=== PATIENT | male | born 1965 | race Caucasian/White ===

== ENCOUNTER 2016-08-25 19:13 | Emergency (ER) | payer BC ==
--- NOTE | 2016-08-25 20:30 | DIAGNOSTIC IMAGING REPORT ---
PROCEDURE: XR CHEST 1 VIEW INDICATION: SYNCOPE TECHNIQUE: Portable AP view 201 5 hours. COMPARISON: None. FINDINGS: Minor scarring at the right medial lung base. Lungs are otherwise clear. Heart and mediastinum are normal. Thorax is normal. IMPRESSION: 1. Negative chest.
--- NOTE | 2016-08-25 21:12 | DIAGNOSTIC IMAGING REPORT ---
PROCEDURE: CT HEAD WITHOUT CONTRAST INDICATION: SYNCOPE TECHNIQUE: Noncontrast axial images with sagittal and coronal reformations. COMPARISON: None. FINDINGS: Brain and ventricles are normal. No evidence of an acute process or hemorrhage. There is a 2 cm chronic retention of the right maxillary sinus with mild to moderate mucosal thickening in the ethmoid air cells. The rest of the sinuses and mastoids are normal. IMPRESSION: 1. Negative head CT. 2. There is mild to moderate mucosal thickening in the ethmoid air cells (most likely chronic). 3. There is a 2 cm chronic retention cyst in right maxillary sinus. 4. Report alert and findings called to emergency department for Dr. Nathan Davey at [address] scans at this facility use dose modulation, iterative reconstruction, and/or weight-based dosing when appropriate to reduce radiation dose to as low as reasonably achievable.
--- NOTE | 2016-08-25 22:22 | ED ORDER SUMMARY ---
..... Patient: PEG GABRIEL OrderSheet [facility] VisitID: [id number] [place] [address] 51y, M Registration Date/Time: 08/25/2016 ORDER SHEET Weight: 83.9 kg (stated) Allergies: Sulfa Antibiotics GENERAL ORDERS: Poultry Husbandman (Continuous) (20:08/25/2016 HSoule per protocol) (20:07 HSoule) CBC w Diff Urgent (20:08/25/2016 HSoule per protocol) (Ack 20:12 LTapper) (20:23 HSoule) CMP Urgent (20:08/25/2016 HSoule per protocol) (Ack 20:12 LTapper) (20:29 SRoberts R.N.) EKG - ER Stat (20:08/25/2016 HSoule per protocol) (20:07 HSoule) POC Glucose (20:08/25/2016 HSoule per protocol) (20:15 HSoule) Poultry Husbandman (Continuous) (20:08/25/2016 Saud CREWS) (20:19 HSoule) Chest 1V Urgent (20:08/25/2016 Saud CREWS) (Ack 20:23 HSoule) (20:29 Godfrey) Amylase Urgent (20:08/25/2016 Saud CREWS) (Ack 20:26 LTapper) (20:29 SRoberts R.N.) Lipase Urgent (20:08/25/2016 Saud CREWS) (Ack 20:26 LTapper) (20:29 SRoberts R.N.) CPK Urgent (20:08/25/2016 Saud CREWS) (Ack 20:26 LTapper) (20:29 SRoberts R.N.) Troponin-I Urgent (20:08/25/2016 Saud CREWS) (Ack 20:26 LTapper) (20:29 SRoberts R.N.) Vitals - Orthostatic (20:08/25/2016 Saud CREWS) (20:32 HSoule) Ethyl Alcohol Urgent (20:35 08/25/2016 Saud CREWS) (Ack 20:40 LTapper) (20:51 Yoly Sahu) CT Head wo Cont Urgent (20:42 08/25/2016 Saud CREWS) (Ack 20:45 LTapper) (20:51 Yoly Sahu) MEDICATION ORDERS: IV FLUIDS: IV Saline Lock (20:07 08/25/2016 HSoule per protocol) (20:07 HSoule) IV NS : initial bolus 1000 mL (1000 mL/hr), then none - for X2 (NOW); Urgent (20:38 08/25/2016 Saud CREWS) (20:50 Yoly Sahu) ORDER SHEET NOTES: [Electronically signed by Susie Hernandes R.N. (22:32 08/25/2016)] [Electronically signed by Christian Vaca Dr. (03:35 08/26/2016)] [Electronically locked/signed by Susie Hernandes R.N. (22:32 08/25/2016)]
--- NOTE | 2016-08-25 22:22 | ED NURSING NOTES ---
Clinical Report - Nurses [facility] [address] [place] [address] 08/25/2016 19:14 Patient: PEG GABRIEL TRIAGE Triage time 19:21. Acuity: LEVEL 3. Chief Complaint: SYNCOPE. Alert. No acute distress. JEREMIE COMA SCORE: Mabel Coma Scale: 15- eyes open spontaneously (4); best verbal response- oriented x 4 (5); best motor response- obeys commands (6). --19:28 Afshan Lim R.N. 19:21 08/25/16. BP: 106/66. HR: 88. RR: 12. O2 saturation: 98%. Temp: 98.3 F (oral). Pain level now: 0/10. --19:28 Afshan Lim R.N. Weight: 83.9 kg stated. Height/Length: 73 inches Per Patient. BMI: 24.4. --19:25 Afshan Lim R.N. Medications Antacid Oral. --19:22 Afshan Lim R.N. Medication/allergy information source: the patient. --19:28 Afshan Lim R.N. Allergies Sulfa Antibiotics. --19:22 Afshan Lim R.N. History Arrived by private vehicle. Historian: patient. Accompanied by friend. Primary physician (Nayeli). This started just prior to arrival. ( was at restaurant and friends noted that he "passed out", his wyws rolled back, Medics evaled him and he came here POV, friend states he was "out" for 1 - 1 1/2 minutes then was groggy). SOCIAL HX: Smoker- current status unknown (no). Alcohol use. (about 3 times week). No drug use. FALL RISK ASSESSMENT: Fall risk assessment completed. No fall risk identified. FUNCTIONAL ASSESSMENT: Functional assessment: no impairments noted. LEARNING NEEDS ASSESSMENT: The learning needs assessment revealed no barriers. --19:28 Afshan Lim R.N. PROBLEMS: no known problems. ADDITIONAL SURGERIES: Colon surgery. Knee Surgery. --19:25 Afshan Lim R.N. Assessment GENERAL / NEURO / PSYCH: Alert. Oriented X 4. Appears in no acute distress. Patient appears calm and cooperative. RESPIRATORY: Respirations not labored. SKIN: Skin is warm and dry. --:28 Afshan Lim R.N. Interventions ID and allergy band on patient. To treatment room. --19: Afshan Lim R.N. PHYSICAL ASSESSMENT 19:08/25/16. Ambulatory to room. Patient gowned. GENERAL / NEURO / PSYCH: Alert. Oriented X 4. Appears in no acute distress. Speech within normal limits. Patient appears neat and clean. RESPIRATORY: Respirations not labored. CVS: Cardiac rhythm: sinus rhythm. SKIN: Skin is warm and dry. --19:31 Afshan Lim R.N. NURSING PROGRESS NOTES 19:08/25/16. cement conveyor operator, pulse oximeter and NIBP monitor placed on patient. Patient gowned. Head of bed elevated. Reassurance given. Call light placed in reach. Side rails up x 1. Bed placed in lowest position. Brakes of bed on. --19:31 Afshan Lim R.N. Care transferred and report received (Mely, RN). --19:33 Susie Hernandes R.N. 19:56 08/25/16. BP: 110/63. HR: 91. RR: 20. O2 saturation: 99% on room air. --19:56 Marielos Larkin 19:26. EKG was performed by a leena and shown to the ED physician. --20:03 Shira Pretty ER Tech1 20:07 08/25/2016 Site #1 started via IV in the right antecubital space with an 20g angiocath, with aseptic technique and good blood return; one attempt. Blood drawn: rainbow set. Labeled in the presence of the patient and sent to the lab. Saline lock flushed with 10 mL saline. --20:07 Marielos Larkin Patient ID band checked for patient name and birthdate: patient confirmed. Blood samples drawn from the right antecubital space peripheral IV site with Vacutainer by nurse ; labeled in presence of the patient and sent to lab: rainbow set. Line flushed with 10 mL normal saline post blood draw. --20:08 TraeJose Armando davidsonnah Finger stick glucose: 100 mg/dL; performed by nurse; result shown to the ED physician. --20:13 Marielos Larkin ( Radiology at bedside). --20:23 Marielos Larkin 20:24. Portable chest x-ray performed. --20:24 McQuoid, Shira, ER Tech1 20:30 08/25/16. BP: 118/69 taken while lying. HR: 86. --20:31 TraeJose Armando davidsonnah 20:31 08/25/16. BP: 109/72 taken while sitting. HR: 90. --20:31 TraeJose ArmandoMarielos 20:31 08/25/16. BP: 97/64. HR: 92. --20:31 Marielos Larkin Patient transported to NE by stretcher with tech. --20:49 Susie Hernandes R.N. 20:50 08/25/2016 Started bag #1 1000 mL IV Fluids IV NS (Saline); at 1000 mL/hr over 1 hour(s) via site #1 via IV pump. Allergies verified and confirmed 5 rights. IV patency established. IV site checked: no pain, redness, or swelling. IV flushed thoroughly pre- and post-medication administration. --20:50 Susie Hernandes R.N. 20:52 08/25/16. Patient returned from NE by stretcher with tech. --20:52 Susie Hernandes R.N. 21:40 08/25/2016 IV Fluids IV NS Bag Change: bag #1 infused. Total amount infused: 1000. STARTED bag #2 at 1000 mL/hr via IV pump. Confirmed 5 rights. IV patency established. IV site checked: no pain, redness, or swelling. IV flushed thoroughly. --21:40 Susie Hernandes R.N. 22:14 08/25/2016 IV Fluids IV NS Discontinued: bag #2 infused. Total amount infused: 1000 mL. IV patency established. IV site checked: no pain, redness, or swelling. IV flushed thoroughly. --22:14 Susie Hernandes R.N. 22:16 08/25/16. BP: 117/58. HR: 94. RR: 25. O2 saturation: 98% on room air. Temp: deferred. 21:08/25/16. BP: 112/60. HR: 94. RR: 27. O2 saturation: 98% on room air. 20:08/25/16. BP: 97/64. HR: 92. 20:08/25/16. BP: 109/72 taken while sitting. HR: 90. 20:30 08/25/16. BP: 118/69 taken while lying. HR: 86. 19:56 08/25/16. BP: 110/63. HR: 91. RR: 20. O2 saturation: 99% on room air. 19:21 08/25/16. BP: 106/66. HR: 88. RR: 12. O2 saturation: 98%. Temp: 98.3 F (oral). Pain level now: 0/10. --22:17 Susie Hernandes R.N. Intake & Output TOTAL INTAKE: 2000 mL. IV fluids: 2000 mL. TOTAL OUTPUT: 1200 mL. Urine: 1200 mL in urinal., with return of yellow-colored clear urine. --22:32 Susie Hernandes R.N. DISPOSITION / DISCHARGE Condition at departure: improved. No learning barriers present. Discharge instructions provided and reviewed with the patient. Patient verbalized understanding. Written instructions provided in Kiswahili. The patient was discharged home and accompanied by software analyst. He left the Emergency Department ambulatory and via private vehicle. Road Tester driving. Medication list reviewed and validated. --22:31 Susie Hernandes R.N. 22:08/25/16. BP: 117/58. HR: 94. RR: 25. O2 saturation: 98% on room air. Temp: deferred. 21:08/25/16. BP: 112/60. HR: 94. RR: 27. O2 saturation: 98% on room air. 20:08/25/16. BP: 97/64. HR: 92. 20:08/25/16. BP: 109/72 taken while sitting. HR: 90. 20:30 08/25/16. BP: 118/69 taken while lying. HR: 86. 19:56 08/25/16. BP: 110/63. HR: 91. RR: 20. O2 saturation: 99% on room air. 19:21 08/25/16. BP: 106/66. HR: 88. RR: 12. O2 saturation: 98%. Temp: 98.3 F (oral). Pain level now: 0/10. --22:31 Susie Hernandes R.N. Locked/Released at 08/25/2016 22:32 by Susie Hernandes R.N.
--- NOTE | 2016-08-25 22:22 | ED CLINICAL REPORT ---
Clinical Report - Physicians/Mid Levels [facility] [address] [place] [address] 08/25/2016 19:14 Patient: PEG GABRIEL Time Seen: 19:32. Arrived- By private vehicle. Historian- patient. HISTORY OF PRESENT ILLNESS The patient has recovered. Chief Complaint: SYNCOPE. This occurred just prior to arrival. It was abrupt in onset. Event was witnessed. The patient had preceding symptoms of light-headedness and nausea. No preceding symptoms of dim vision. The patient felt faint, lost consciousness and collapsed. No seizure activity or incontinence. At time of event, he was sitting. Had a single episode. The episode lasted ("a good minute"). No injuries noted. Currently he feels normal. Similar symptoms previously: Once. ( 25 years ago he stood up quickly to answer a phone and passed out). REVIEW OF SYSTEMS The patient has had chills, nausea and dizziness. No fever, calf pain, chest pain, cough or difficulty breathing. No pedal edema, palpitations or urinary problems. He has experienced sweats. (when he was at the restaurant). He has had mild vomiting. The vomiting has occurred only once. No blood-tinged emesis, coffee-grounds emesis or frankly bloody emesis. All systems otherwise negative, except as recorded above. PAST HISTORY ( PCP Chavez Odom). Problems: Colon Cancer. Additional Surgeries: Colon surgery. Knee Surgery. Medications: Antacid Oral. Allergies: Sulfa Antibiotics. SOCIAL HISTORY Never smoker. Occasional alcohol use. No drug use. Residence: [place]. FAMILY HISTORY Stroke in first-degree relative (father); cancer in first-degree relative (mother and father). ADDITIONAL NOTES The nursing notes have been reviewed. PHYSICAL EXAM Vital Signs: 08/25/2016 19:21 BP: 106/66. HR: 88. RR: 12. O2 saturation: 98%. Temp: 98.3 F. Pain level now: 0/10. Have been reviewed. Appearance: Alert. Eyes: Pupils equal, round and reactive to light. No nystagmus. ENT: Normal ENT inspection. Moist mucous membranes. Pharynx normal. Neck: Normal inspection. Neck supple. CVS: Normal heart rate and rhythm. Heart sounds normal. Respiratory: No respiratory distress. Breath sounds normal. Abdomen: Soft and nontender. No organomegaly. Back: Normal inspection. No CVA tenderness. Skin: Skin warm and dry. Normal skin color. Normal skin turgor. Extremities: Extremities exhibit normal ROM. No calf tenderness. No lower extremity edema. Neuro: Alert. Oriented X 3. Mood/affect normal. No cerebellar findings. No motor deficit. No sensory deficit. LABS, X-RAYS, AND EKG EKG: Normal EKG. Rate: 89. Prior EKG unavailable. The study has been independently viewed by me. Chest X-ray: (IMPRESSION: 1. Negative chest.). Laboratory Tests: CBC w Diff: (MANDY: 08/25/2016 20:05) ( MsgRcvd 08/25/2016 20:22) Final results Test Result Flag Units (Reference) WHITE BLOOD COUNT 9.1 K/uL (4.5-11.5) RED BLOOD COUNT 4.96 M/uL (4.50-5.90) HEMOGLOBIN 15.6 gm/dL (13.5-17.5) HEMATOCRIT 46.2 % (41.0-53.0) MEAN CELL VOLUME 93 fL (80-100) MEAN CORPUSCULAR HGB 31 pg (26-34) MEAN CORPUSCULAR HGB CONC 34 g/dL (31-37) RED CELL DISTRIBUTION WIDTH 13.8 % (11.6-14.8) PLATELET COUNT 194 K/uL (150-400) NEUTROPHIL % 77.5 H % (50-75) LYMPH % 17.0 L % (25-40) MONO % 4.6 % (3-14) EOSINOPHIL % 0.6 % (0-4) BASOPHIL % 0.3 % (0-2) CMP: (MANDY: 08/25/2016 20:05) ( MsgRcvd 08/25/2016 21:04) Final results Test Result Flag Units (Reference) GLUCOSE 105 mg/dL (70-110) BUN 13 mg/dL (7-18) CREATININE 1.0 mg/dL (0.6-1.3) Estimated GFR >60 mL/min Estimated GFR- >60 mL/min Note: Persistent reduction over 3 months in eGFR<60 mL/min/1.73 m2 defines CKD. Patients with eGFR values>=60 mL/min/1.73 m2 may also have CKD if evidence ofpersistent proteinuria. Additional information may be foundat www.kidney.org. SODIUM 140 mmol/L (136-145) POTASSIUM 3.9 mmol/L (3.5-5.1) CHLORIDE 104 mmol/L (98-107) CARBON DIOXIDE 31 mmol/L (21-32) CALCIUM 8.3 L mg/dL (8.5-10.1) TOTAL PROTEIN 6.8 g/dL (6.4-8.2) ALBUMIN 3.6 g/dL (3.3-5.0) BILIRUBIN, TOTAL 1.3 H mg/dL (0.0-1.0) ALKALINE PHOSPHATASE 51 U/L (46-116) AST (SGOT) 19 U/L (15-37) ALT (SGPT) 34 U/L (12-78) LIPASE 144 U/L (73-393) AMYLASE 35 U/L (25-115) CPK 71 U/L (24-260) TROPONIN I <0.05 L ng/mL (0.00-1.5) TROPONIN REFERENCE RANGE:<0.1 NEGATIVE0.1-1.5 INDETERMINANT>1.5 POSITIVE ETHYL ALCOHOL <3 L mg/dL (3-10) . PROGRESS AND PROCEDURES Course of Care: the patient is a pleasant 51-year-old male with no pertinent past medical history presenting for evaluation of 60. Patient was out for approximately 1 minute. Episode was witnessed. No seizure-like activity. Patient was initially evaluated by the previous doctor. Possible upon patient's laboratory studies. Patient's orthostatic vital signs were positive. Patient had lower systolic blood pressure when standing. No acute abdomen allergies noted. Workup is otherwise unremarkable so far. Plan is follow up on the rest of patient's laboratory studies and reevaluate after IV fluids given. Workup has otherwise been unremarkable. Laboratory studies including EKG a chest x-ray are unremarkable. Patient reports improved symptoms with IV hydration. Patient likely having syncopal event secondary to orthostatic hypotension. Patient does not have any other acute abnormalities [place]theSanFranciscosyncoperule. That the patient is to be admitted to the hospital. Did not feel further emergency department evaluation is warranted at this time. Discussed with patient workup, diagnosis, home care, follow-up, and return precautions. All questions answered. The patient expressed understanding of these instructions and was agreeable for that. On reevaluation, patient is resting in bed in no acute distress. Patient is nontoxic. Vital signs improved. CLINICAL IMPRESSION 08/25/2016 22:16 BP: 117/58. HR: 94. RR: 25. O2 saturation: 98%. Syncope of unknown cause .12 lead EKG performed. (acute). Blood pressure normal. Oxygen saturation normal. Postural hypotension (acute). INSTRUCTIONS Warnings: GENERAL WARNINGS: Return or contact your physician immediately if your condition worsens or changes unexpectedly, if not improving as expected, or if other problems arise. SPECIFICALLY, return if you develop chest pain, fluttering sensation in your chest, lightheadedness, fainting or numbness. Your Current Medications: CONTINUE TAKING THE FOLLOWING MEDICATIONS: Antacid Oral. Follow-up: Return to the emergency department as needed. Follow up with your doctor in three days. Reason for referral: recheck today's concerns. Summary of care provided to patient via paper. Screening today revealed the patient's blood pressure to be in the normal range. The patient should follow up with a primary care provider for blood pressure management. Understanding of the discharge instructions verbalized by patient. (Electronically signed by Christian Vaca Dr. 08/26/2016 3:35)
--- NOTE | 2016-08-25 22:22 | ED ORDER SUMMARY ---
..... Patient: PEG GABRIEL OrderSheet [facility] VisitID: [id number] [place] [address] 51y, M Registration Date/Time: 08/25/2016 ORDER SHEET Weight: 83.9 kg (stated) Allergies: Sulfa Antibiotics GENERAL ORDERS: As400 Programmer Analyst (Continuous) (20:08/25/2016 HSoule per protocol) (20:07 HSoule) CBC w Diff Urgent (20:08/25/2016 HSoule per protocol) (Ack 20:12 LTapper) (20:23 HSoule) CMP Urgent (20:08/25/2016 HSoule per protocol) (Ack 20:12 LTapper) (20:29 SRoberts R.N.) EKG - ER Stat (20:08/25/2016 HSoule per protocol) (20:07 HSoule) POC Glucose (20:08/25/2016 HSoule per protocol) (20:15 HSoule) As400 Programmer Analyst (Continuous) (20:08/25/2016 Saud CREWS) (20:19 HSoule) Chest 1V Urgent (20:08/25/2016 Saud CREWS) (Ack 20:23 HSoule) (20:29 Godfrey) Amylase Urgent (20:08/25/2016 Saud CREWS) (Ack 20:26 LTapper) (20:29 SRoberts R.N.) Lipase Urgent (20:08/25/2016 Saud CREWS) (Ack 20:26 LTapper) (20:29 SRoberts R.N.) CPK Urgent (20:08/25/2016 Saud CREWS) (Ack 20:26 LTapper) (20:29 SRoberts R.N.) Troponin-I Urgent (20:08/25/2016 Saud CREWS) (Ack 20:26 LTapper) (20:29 SRoberts R.N.) Vitals - Orthostatic (20:08/25/2016 Saud CREWS) (20:32 HSoule) Ethyl Alcohol Urgent (20:35 08/25/2016 Saud CREWS) (Ack 20:40 LTapper) (20:51 Yoly Sahu) CT Head wo Cont Urgent (20:42 08/25/2016 Saud CREWS) (Ack 20:45 LTapper) (20:51 Yoly Sahu) MEDICATION ORDERS: IV FLUIDS: IV Saline Lock (20:07 08/25/2016 HSoule per protocol) (20:07 HSoule) IV NS : initial bolus 1000 mL (1000 mL/hr), then none - for X2 (NOW); Urgent (20:38 08/25/2016 Saud CREWS) (20:50 Yoly Sahu) ORDER SHEET NOTES: [Electronically signed by Susie Hernandes R.N. (22:32 08/25/2016)] [Electronically signed by Christian Vaca Dr. (03:35 08/26/2016)] [Electronically locked/signed by Susie Hernandes R.N. (22:32 08/25/2016)]
--- NOTE | 2016-08-25 22:22 | ED NURSING NOTES ---
Clinical Report - Nurses [facility] [address] [place] [address] 08/25/2016 19:14 Patient: PEG GABRIEL TRIAGE Triage time 19:21. Acuity: LEVEL 3. Chief Complaint: SYNCOPE. Alert. No acute distress. JEREMIE COMA SCORE: [place] Coma Scale: 15- eyes open spontaneously (4); best verbal response- oriented x 4 (5); best motor response- obeys commands (6). --19:28 Afshan Lim R.N. 19:21 08/25/16. BP: 106/66. HR: 88. RR: 12. O2 saturation: 98%. Temp: 98.3 F (oral). Pain level now: 0/10. --19:28 Afshan Lim R.N. Weight: 83.9 kg stated. Height/Length: 73 inches Per Patient. BMI: 24.4. --19:25 Afshan Lim R.N. Medications Antacid Oral. --19:22 Afshan Lim R.N. Medication/allergy information source: the patient. --19:28 Afshan Lim R.N. Allergies Sulfa Antibiotics. --19:22 Afshan Lim R.N. History Arrived by private vehicle. Historian: patient. Accompanied by friend. Primary physician (Nayeli). This started just prior to arrival. ( was at restaurant and friends noted that he "passed out", his wyws rolled back, Medics evaled him and he came here POV, friend states he was "out" for 1 - 1 1/2 minutes then was groggy). SOCIAL HX: Smoker- current status unknown (no). Alcohol use. (about 3 times week). No drug use. FALL RISK ASSESSMENT: Fall risk assessment completed. No fall risk identified. FUNCTIONAL ASSESSMENT: Functional assessment: no impairments noted. LEARNING NEEDS ASSESSMENT: The learning needs assessment revealed no barriers. --19:28 Afshan Lim R.N. PROBLEMS: no known problems. ADDITIONAL SURGERIES: Colon surgery. Knee Surgery. --19:25 Afshan Lim R.N. Assessment GENERAL / NEURO / PSYCH: Alert. Oriented X 4. Appears in no acute distress. Patient appears calm and cooperative. RESPIRATORY: Respirations not labored. SKIN: Skin is warm and dry. --:28 Afshan Lim R.N. Interventions ID and allergy band on patient. To treatment room. --19: Afshan Lim R.N. PHYSICAL ASSESSMENT 19:08/25/16. Ambulatory to room. Patient gowned. GENERAL / NEURO / PSYCH: Alert. Oriented X 4. Appears in no acute distress. Speech within normal limits. Patient appears neat and clean. RESPIRATORY: Respirations not labored. CVS: Cardiac rhythm: sinus rhythm. SKIN: Skin is warm and dry. --19:31 Afshan Lim R.N. NURSING PROGRESS NOTES 19:08/25/16. lunchroom monitor, pulse oximeter and NIBP monitor placed on patient. Patient gowned. Head of bed elevated. Reassurance given. Call light placed in reach. Side rails up x 1. Bed placed in lowest position. Brakes of bed on. --19:31 Afshan Lim R.N. Care transferred and report received (Mely, RN). --19:33 Susie Hernandes R.N. 19:56 08/25/16. BP: 110/63. HR: 91. RR: 20. O2 saturation: 99% on room air. --19:56 Marielos Larkin 19:26. EKG was performed by a leena and shown to the ED physician. --20:03 Shira Pretty ER Tech1 20:07 08/25/2016 Site #1 started via IV in the right antecubital space with an 20g angiocath, with aseptic technique and good blood return; one attempt. Blood drawn: rainbow set. Labeled in the presence of the patient and sent to the lab. Saline lock flushed with 10 mL saline. --20:07 Marielos Larkin Patient ID band checked for patient name and birthdate: patient confirmed. Blood samples drawn from the right antecubital space peripheral IV site with Vacutainer by nurse ; labeled in presence of the patient and sent to lab: rainbow set. Line flushed with 10 mL normal saline post blood draw. --20:08 TraeJose Armando davidsonnah Finger stick glucose: 100 mg/dL; performed by nurse; result shown to the ED physician. --20:13 Marielos Larkin ( Radiology at bedside). --20:23 Marielos Larkin 20:24. Portable chest x-ray performed. --20:24 McQuoid, Shira, ER Tech1 20:30 08/25/16. BP: 118/69 taken while lying. HR: 86. --20:31 TraeJose Armando davidsonnah 20:31 08/25/16. BP: 109/72 taken while sitting. HR: 90. --20:31 TraeJose ArmandoMarielos 20:31 08/25/16. BP: 97/64. HR: 92. --20:31 Marielos Larkin Patient transported to CO by stretcher with tech. --20:49 Susie Hernandes R.N. 20:50 08/25/2016 Started bag #1 1000 mL IV Fluids IV NS (Saline); at 1000 mL/hr over 1 hour(s) via site #1 via IV pump. Allergies verified and confirmed 5 rights. IV patency established. IV site checked: no pain, redness, or swelling. IV flushed thoroughly pre- and post-medication administration. --20:50 Susie Hernandes R.N. 20:52 08/25/16. Patient returned from CO by stretcher with tech. --20:52 Susie Hernandes R.N. 21:40 08/25/2016 IV Fluids IV NS Bag Change: bag #1 infused. Total amount infused: 1000. STARTED bag #2 at 1000 mL/hr via IV pump. Confirmed 5 rights. IV patency established. IV site checked: no pain, redness, or swelling. IV flushed thoroughly. --21:40 Susie Hernandes R.N. 22:14 08/25/2016 IV Fluids IV NS Discontinued: bag #2 infused. Total amount infused: 1000 mL. IV patency established. IV site checked: no pain, redness, or swelling. IV flushed thoroughly. --22:14 Susie Hernandes R.N. 22:16 08/25/16. BP: 117/58. HR: 94. RR: 25. O2 saturation: 98% on room air. Temp: deferred. 21:08/25/16. BP: 112/60. HR: 94. RR: 27. O2 saturation: 98% on room air. 20:08/25/16. BP: 97/64. HR: 92. 20:08/25/16. BP: 109/72 taken while sitting. HR: 90. 20:30 08/25/16. BP: 118/69 taken while lying. HR: 86. 19:56 08/25/16. BP: 110/63. HR: 91. RR: 20. O2 saturation: 99% on room air. 19:21 08/25/16. BP: 106/66. HR: 88. RR: 12. O2 saturation: 98%. Temp: 98.3 F (oral). Pain level now: 0/10. --22:17 Susie Hernandes R.N. Intake & Output TOTAL INTAKE: 2000 mL. IV fluids: 2000 mL. TOTAL OUTPUT: 1200 mL. Urine: 1200 mL in urinal., with return of yellow-colored clear urine. --22:32 Susie Hernandes R.N. DISPOSITION / DISCHARGE Condition at departure: improved. No learning barriers present. Discharge instructions provided and reviewed with the patient. Patient verbalized understanding. Written instructions provided in Lithuanian. The patient was discharged home and accompanied by pinked edge sewing machine operator. He left the Emergency Department ambulatory and via private vehicle. [employer] Sk[employer] driving. Medication list reviewed and validated. --22:31 Susie Hernandes R.N. 22:08/25/16. BP: 117/58. HR: 94. RR: 25. O2 saturation: 98% on room air. Temp: deferred. 21:08/25/16. BP: 112/60. HR: 94. RR: 27. O2 saturation: 98% on room air. 20:08/25/16. BP: 97/64. HR: 92. 20:08/25/16. BP: 109/72 taken while sitting. HR: 90. 20:30 08/25/16. BP: 118/69 taken while lying. HR: 86. 19:56 08/25/16. BP: 110/63. HR: 91. RR: 20. O2 saturation: 99% on room air. 19:21 08/25/16. BP: 106/66. HR: 88. RR: 12. O2 saturation: 98%. Temp: 98.3 F (oral). Pain level now: 0/10. --22:31 Susie Hernandes R.N. Locked/Released at 08/25/2016 22:32 by Susie Hernandes R.N.
--- NOTE | 2016-08-26 03:36 | ED MAR SUMMARY ---
..... Medication Administration Record [facility] [address] [place] [address] Patient: PEG GABRIEL Visit ID: [id number] 51y, M Weight: 83.9 kg Height/Length: 73 in BMI: 24.4 ALLERGIES: Sulfa Antibiotics Start 20:50 08/25/2016 Susie Hernandes R.N., Stop 22:14 08/25/2016 Susie Hernandes R.N. Medication Administered: IV NS (SALINE), Dose: IV Fluids over 1 hour(s), Rate: 1000 mL/hr, Dispensed: 1000 mL bag, Site: #1 right AC. Medication Ordered: IV NS : initial bolus 1000 mL (1000 mL/hr), then none - for X2 (NOW); Urgent.
--- NOTE | 2016-08-26 03:36 | ED MAR SUMMARY ---
..... Medication Administration Record [facility] [address] [place] [address] Patient: PEG GABRIEL Visit ID: [id number] 51y, M Weight: 83.9 kg Height/Length: 73 in BMI: 24.4 ALLERGIES: Sulfa Antibiotics Start 20:50 08/25/2016 Susie Hernandes R.N., Stop 22:14 08/25/2016 Susie Hernandes R.N. Medication Administered: IV NS (SALINE), Dose: IV Fluids over 1 hour(s), Rate: 1000 mL/hr, Dispensed: 1000 mL bag, Site: #1 right AC. Medication Ordered: IV NS : initial bolus 1000 mL (1000 mL/hr), then none - for X2 (NOW); Urgent.
--- NOTE | 2016-08-26 03:36 | ED MED RECONCILIATION SUMMARY ---
Patient: PEG GABRIEL Medication Reconciliation Report [facility] VisitID: [id number] [address] [place] [place] [address] 51y, M Registration Date/Time: 08/25/2016 Weight: 83.9 kg Height/Length: 73 in. BMI: 24.4 ALLERGIES: Sulfa Antibiotics The patient's Home Medications are listed below: CONTINUE TAKING THE FOLLOWING MEDICATIONS: Antacid Oral The source(s) of the original Home Medication information: patient The following Medications were given to the patient in the Emergency Department: IV NS IV Fluids bolus 0, then 1000 mL/hr, administered: 08/25/2016 8:50:00 PM The following Medications were prescribed to the patient: None.
--- NOTE | 2016-08-26 03:36 | ED MED RECONCILIATION SUMMARY ---
Patient: PEG GABRIEL Medication Reconciliation Report [facility] VisitID: [id number] [address] [place] [address] 51y, M Registration Date/Time: 08/25/2016 Weight: 83.9 kg Height/Length: 73 in. BMI: 24.4 ALLERGIES: Sulfa Antibiotics The patient's Home Medications are listed below: CONTINUE TAKING THE FOLLOWING MEDICATIONS: Antacid Oral The source(s) of the original Home Medication information: patient The following Medications were given to the patient in the Emergency Department: IV NS IV Fluids bolus 0, then 1000 mL/hr, administered: 08/25/2016 8:50:00 PM The following Medications were prescribed to the patient: None.
--- NOTE | 2016-08-26 03:36 | ED DISCHARGE INSTRUCTIONS ---
Patient: PEG GABRIEL General Instructions [facility] VisitID: [id number] [place] [address] 51y, M Registration Date/Time: 08/25/2016 08/25/2016 22:16 BP: 117/58. HR: 94. RR: 25. O2 saturation: 98%. Syncope of unknown cause .12 lead EKG performed. (acute). Blood pressure normal. Oxygen saturation normal. Postural hypotension (acute). INSTRUCTIONS Warnings: GENERAL WARNINGS: Return or contact your physician immediately if your condition worsens or changes unexpectedly, if not improving as expected, or if other problems arise. SPECIFICALLY, return if you develop chest pain, fluttering sensation in your chest, lightheadedness, fainting or numbness. Your Current Medications: CONTINUE TAKING THE FOLLOWING MEDICATIONS: Antacid Oral. Follow-up: Return to the emergency department as needed. Follow up with your doctor in three days. Reason for referral: recheck today's concerns. Summary of care provided to patient via paper. Screening today revealed the patient's blood pressure to be in the normal range. The patient should follow up with a primary care provider for blood pressure management. Understanding of the discharge instructions verbalized by patient. ADDITIONAL INFORMATION Fainting:Uncertain Cause Fainting (syncope) is a temporary loss of consciousness ("passing out"). It occurs when blood flow to the brain is reduced. Near-fainting ("near-syncope") is very similar to fainting, but you do not fully "pass out". The common minor causes of fainting include: sudden fear, pain, nausea, emotional stress and overexertion. Suddenly standing up after sitting or lying for a long time can also cause fainting. The more serious causes for fainting are due to either a very slow or very fast or very slow heart beat ("arrhythmia"), other types of heart disease, dehydration, blood loss, seizure, stroke or ruptured blood vessel in the brain. Taking too much high blood pressure medicine can also cause low blood pressure and fainting. The exact cause of your episode is not certain. However, the tests today did not show any of the serious causes of fainting. Sometimes further testing is needed to find out if a serious problem exists. Therefore, it is important that you follow-up with your doctor as advised. Home Care: 1) Rest today. You may resume your normal activities when you are feeling back to normal. It is best to remain with someone who can check on you for the next 24 hours to watch for another episode of fainting. 2) If you become light-headed or dizzy, lie down immediately or sit with your head between your knees. 3) Because we do not know the exact cause of your near fainting spell, it is possible for another spell to occur without warning. Therefore, do not drive a car or operate dangerous equipment, do not take a bath alone (use a shower instead) and do not swim alone until your doctor says that you are no longer in danger of having another fainting spell. Follow Up with your doctor as advised. Get Prompt Medical Attention if any of the following occur: -- Another fainting spell occurs, which is not explained by the common causes listed above -- Chest, arm, neck, jaw, back or abdominal pain -- Shortness of breath -- Severe headache or seizure -- Blood in vomit, stools (black or red color) -- Unexpected vaginal bleeding -- Palpitations (very rapid or very slow or irregular heart beat) -- Signs of stroke: Weakness of an arm or leg or one side of the face Difficulty with speech or vision Extreme drowsiness, confusion, dizziness or fainting Orthostatic Hypotension The normal blood pressure range is between 90/60and 140/80. Low blood pressure (also calledhypotension) is a decrease in blood pressure from what is normal for you. Orthostatic hypotensionis a type of low blood pressure that occurs only when changing body position from lying to standing. It can cause symptoms of dizziness, lightheadedness or fainting. Some of the causesof orthostatic hypotension are: Certain medicines, including: High blood pressure medicines Diuretics (water pills) Some heart medicines Some antidepressants Pain, anxiety, sedative, and sleeping medicines Dehydration (from vomiting, diarrhea, or poor fluid intake) Severe infection, high fever Blood loss (for example, bleeding from the stomach or intestines) Treatment will depend on the cause of your low blood pressure. Home Care: Rest until symptoms improve. Change positions slowly from lying to standing.When getting out of bed, sit on the side of the bed with your legs down for at least 30 seconds before standing. This gives your body time to adjust to the position change. Follow the treatment plan described by your physician. Follow Up with your doctor or as advised by our staff. Get Prompt Medical Attention if any of the following occur: Dizziness, lightheadedness or fainting Black or red color in your stools or vomit Persistent diarrhea or vomiting Inability to eat or drink Fever of 100.4F (38C) or higher, or as directed by your healthcare provider Urinary burning or foul-smelling urine You have been given the following additional information: Syncope, Unk Cause Hypotension, Orthostatic (Electronically signed by Christian Vaca Dr. 08/26/2016 3:35)
== END 2016-08-25 22:25 | disposition home or self-care (01) ==
LOC: ED SRH 19:13
DX: I95.1 Orthostatic hypotension (principal); Z88.2 Allergy status to sulfonamides
CPT/HCPCS: 90098; 90100; 90616; 92010; 92235; 92530; 92610; 95059